=== PATIENT | male | born 1960 | race American Indian/Alaskan Native ===

== ENCOUNTER 2019-02-23 17:43 | Emergency (ER) | payer SELFPAY ==
[2019-02-23 19:57] LABS: Basophils # (Auto) 0.1 K/mm3 (0.0-0.1); Basophils % (Auto) 1.6 % (0.0-1.8); Eosinophils # (Auto) 0.4 K/mm3 (0.0-0.4); Eosinophils % (Auto) 4.8 % (0.0-4.3); Hematocrit 44.9 % (35.5-45.6); Hemoglobin 14.8 gm/dl (11.8-15.2); Lymphocytes # (Auto) 2.6 K/mm3 (1.2-5.4); Lymphocytes % (Auto) 29.4 % (13.4-35.0); Mean Corpuscular HGB Conc 33 % (32-34); Mean Corpuscular Volume 88 fl (84-94); Monocytes # (Auto) 0.5 K/mm3 (0.0-0.8); Monocytes % (Auto) 5.5 % (0.0-7.3); Platelet Count 225 K/mm3 (140-440); Red Cell Distribution Width 13.7 % (13.2-15.2)
[2019-02-23 20:10] LABS: BUN/Creatinine Ratio 15; Blood Urea Nitrogen 15 mg/dL (9-20); Calcium 9.8 mg/dL (8.4-10.2); Hemolysis Index 7
[2019-02-23] MEDS ORDERED: PEPCID PO ONE (21:43)
[2019-02-23] MEDS ORDERED: BENTYL PO ONE (21:43)
[2019-02-23] MEDS ORDERED: ZOFRAN ODT PO ONE (21:43)
[2019-02-23 21:54] LABS: Bilirubin,Urine NEG (Negative); Blood,Urine NEG (Negative); Color,Urine Yellow (Yellow); Mucus,Urine FEW /HPF; Protein,Urine <15 mg/dL mg/dL (Negative); Urobilinogen,Urine < 2.0 mg/dL (<2.0); WBC,Urine < 1.0 /HPF (0.0-6.0)
--- NOTE | 2019-02-23 22:41 | Emergency Department Report ---
ED Abdominal Pain HPI - General Chief Complaint: Abdominal Pain Stated Complaint: ATE A CANDY BAR WITH MAGGETS Time Seen by Provider: 02/23/19 21:30 Source: patient Mode of arrival: Ambulatory Limitations: No Limitations - History of Present Illness Initial Comments: Patient is a 59-year-old male who presented to the ED with complaint of acute on onset nausea and vomiting as well as epigastric pain after eating a Maggots infested candy 3 hours ago. Patient states that since the incident occurred he has had normal appetite. Patient states that he has had one episode of vomiting but that the nausea is persistent. Patient denies chest pain, shortness of breath, sore throat, diarrhea, dysuria, urinary frequency and urgency, fever, chills, headache or dizziness. MD Complaint: abdominal pain (epigastric), other (Nausea) -: Sudden, hour(s) (3) Location: epigastric Radiation: none Migration to: no migration Severity: mild Severity scale (0 -10): 2 Quality: cramping, aching Consistency: intermittent Improves With: nothing Worsens With: nothing Associated Symptoms: denies other symptoms, nausea. denies: vomiting, diarrhea, fever, chills, constipation, hematemesis, hematochezia, melena, anorexia, syncope, other - Related Data Home Medications Medication Instructions Recorded Confirmed Last Taken AtorvaSTATin [Lipitor] 20 mg PO QHS 02/14/16 02/19/16 02/18/16 23:00 Gemfibrozil [Lopid] 600 mg PO BID 02/14/16 02/19/16 02/18/16 23:00 metFORMIN [Glucophage] 500 mg PO BID 02/14/16 02/19/16 02/18/16 12:00 Insulin Lispro [Humalog Kwikpen 4 unit SQ BID 02/16/16 02/19/16 02/17/16 12:00 200 UNITS/ML] Previous Rx's Medication Instructions Recorded Last Taken Type Promethazine [Phenergan TAB] 25 mg PO Q6HR PRN #14 tab 02/19/16 Unknown Rx oxyCODONE /ACETAMINOPHEN [Percocet 1 tab PO Q6HR PRN #20 tablet 02/19/16 Unknown Rx 5/325] Dicyclomine [Bentyl] 20 mg PO Q6H PRN #20 tablet 02/23/19 Unknown Rx Ondansetron [Zofran Odt] 4 mg PO Q6HR PRN #15 tab.rapdis 02/23/19 Unknown Rx raNITIdine HCl [Zantac] 150 mg PO Q12H #30 tablet 02/23/19 Unknown Rx Allergies Allergy/AdvReac Type Severity Reaction Status Date / Time No Known Allergies Allergy Unverified 02/02/16 12:13 ED Review of Systems ROS: Stated complaint: ATE A CANDY BAR WITH MAGGETS Other details as noted in HPI Constitutional: denies: chills, fever Eyes: denies: eye pain, eye discharge, vision change ENT: denies: ear pain, throat pain Respiratory: denies: cough, shortness of breath, wheezing Cardiovascular: denies: chest pain, palpitations Endocrine: no symptoms reported Gastrointestinal: abdominal pain, nausea, vomiting. denies: diarrhea Genitourinary: denies: urgency, dysuria Musculoskeletal: denies: back pain, joint swelling, arthralgia Skin: denies: rash, lesions Neurological: denies: headache, weakness, paresthesias Psychiatric: denies: anxiety, depression Hematological/Lymphatic: denies: easy bleeding, easy bruising ED Past Medical Hx - Past Medical History Previous Medical History?: Yes Hx Hypertension: Yes (FOR 2 MTHS, DR. SARBJIT CHRISTIE- PCP) Hx Heart Attack/AMI: No Hx Diabetes: Yes Hx Liver Disease: No Hx Renal Disease: No Hx Sickle Cell Disease: No Hx Arthritis: Yes Hx Seizures: No Hx Asthma: No Hx HIV: No - Surgical History Past Surgical History?: Yes - Social History Smoking Status: Never Smoker Substance Use Type: Alcohol - Medications Home Medications: Home Medications Medication Instructions Recorded Confirmed Last Taken Type AtorvaSTATin [Lipitor] 20 mg PO QHS 02/14/16 02/19/16 02/18/16 23:00 History Gemfibrozil [Lopid] 600 mg PO BID 02/14/16 02/19/16 02/18/16 23:00 History metFORMIN [Glucophage] 500 mg PO BID 02/14/16 02/19/16 02/18/16 12:00 History Insulin Lispro [Humalog Kwikpen 4 unit SQ BID 02/16/16 02/19/16 02/17/16 12:00 History 200 UNITS/ML] Promethazine [Phenergan TAB] 25 mg PO Q6HR PRN #14 tab 02/19/16 Unknown Rx oxyCODONE /ACETAMINOPHEN [Percocet 1 tab PO Q6HR PRN #20 tablet 02/19/16 Unknown Rx 5/325] Dicyclomine [Bentyl] 20 mg PO Q6H PRN #20 tablet 02/23/19 Unknown Rx Ondansetron [Zofran Odt] 4 mg PO Q6HR PRN #15 tab.rapdis 02/23/19 Unknown Rx raNITIdine HCl [Zantac] 150 mg PO Q12H #30 tablet 02/23/19 Unknown Rx ED Physical Exam - General Limitations: No Limitations General appearance: alert, in no apparent distress - Head Head exam: Present: atraumatic, normocephalic, normal inspection - Eye Eye exam: Present: normal appearance, PERRL, EOMI. Absent: scleral icterus, conjunctival injection, periorbital swelling, periorbital tenderness Pupils: Present: normal accommodation - ENT ENT exam: Present: normal exam, normal orophraynx, mucous membranes moist, TM's normal bilaterally, normal external ear exam - Neck Neck exam: Present: normal inspection, full ROM - Respiratory Respiratory exam: Present: normal lung sounds bilaterally. Absent: respiratory distress, wheezes, rales, stridor, chest wall tenderness, accessory muscle use, decreased breath sounds - Cardiovascular Cardiovascular Exam: Present: regular rate, normal rhythm, normal heart sounds. Absent: systolic murmur, diastolic murmur, rubs, gallop - GI/Abdominal GI/Abdominal exam: Present: soft, normal bowel sounds. Absent: distended, tenderness, guarding, rebound, hyperactive bowel sounds, hypoactive bowel sounds, organomegaly, bruit - Rectal Rectal exam: Present: deferred - Extremities Exam Extremities exam: Present: normal inspection, full ROM, normal capillary refill - Back Exam Back exam: Present: normal inspection, full ROM. Absent: tenderness, CVA tenderness (R), CVA tenderness (L), muscle spasm, paraspinal tenderness, vertebral tenderness - Neurological Exam Neurological exam: Present: alert, oriented X3, CN II-XII intact, normal gait, reflexes normal - Psychiatric Psychiatric exam: Present: normal affect, normal mood - Skin Skin exam: Present: warm, dry, intact, normal color. Absent: rash ED Course Vital Signs 02/23/19 18:34 Temperature 98.5 F Pulse Rate 81 Respiratory 16 Rate Blood Pressure 121/82 O2 Sat by Pulse 96 Oximetry - Reevaluation(s) Reevaluation #1: 02/23/19 22:42 This is a 59-year-old male who presented to the ED with complaint of acute on onset nausea and vomiting as well as epigastric pain after eating a Maggots infested candy 3 hours ago. In the ED, patient is alert and oriented 3 and is not in distress. Patient has not had any vomiting episodes in the ED. Patient was treated in the ED for nausea and vomiting, also given pain medication and antacids. Lab test results were all unremarkable and nontoxic. Patient discharged home on antiemetics, antacids and pain medications and advised follow-up with his primary care physician in 5-7 days for reevaluation or return to the ED immediately if symptoms get worse. ED Medical Decision Making - Lab Data Result diagrams: 02/23/19 19:33 02/23/19 19:33 - Medical Decision Making This is a 59-year-old male who presented to the ED with complaint of acute on onset nausea and vomiting as well as epigastric pain after eating a Maggots infested candy 3 hours ago. In the ED, patient is alert and oriented 3 and is not in distress. Patient has not had any vomiting episodes in the ED. Patient was treated in the ED for nausea and vomiting, also given pain medication and antacids. Lab test results were all unremarkable and nontoxic. Patient discharged home on antiemetics, antacids and pain medications and advised follow-up with his primary care physician in 5-7 days for reevaluation or return to the ED immediately if symptoms get worse. - Differential Diagnosis Viral gastroenteritis; GERD; Food poisoning; vomiting Critical care attestation.: If time is entered above; I have spent that time in minutes in the direct care of this critically ill patient, excluding procedure time. ED Disposition Clinical Impression: Abdominal pain, acute, epigastric, Nausea and vomiting in adult Disposition: DC-01 TO HOME OR SELFCARE Is pt being admited?: No Does the pt Need Aspirin: No Condition: Stable Instructions: Gastroenteritis (ED), Acute Nausea and Vomiting (ED), Acute Ab dominal Pain (ED) Additional Instructions: Take medication with food, drink plenty of fluids and follow-up with your primary care physician in 5-7 days for reevaluation. Return to the ED immediately if symptoms get worse. Prescriptions: Dicyclomine [Bentyl] 20 mg PO Q6H PRN #20 tablet PRN Reason: Pain , Severe (7-10) raNITIdine HCl [Zantac] 150 mg PO Q12H #30 tablet Ondansetron [Zofran Odt] 4 mg PO Q6HR PRN #15 tab.rapdis PRN Reason: Nausea Referrals: PRIMARY CARE, [Primary Care Provider] - 3-5 Days Forms: Work/School Release Form(ED) Time of Disposition: 22:40 Print Language: TURKISH
[2019-02-23 22:56] VITALS: BP 125/72
== END 2019-02-23 22:57 | disposition home or self-care (01) ==
LOC: ED 17:43
DX: R10.13 Epigastric pain (principal); R11.2 Nausea with vomiting, unspecified; I10 Essential (primary) hypertension; E11.9 Type 2 diabetes mellitus without complications; M19.90 Unspecified osteoarthritis, unspecified site; Z79.4 Long term (current) use of insulin
CPT/HCPCS: 36415; 80048; 81001; 85025; Q0162

== ENCOUNTER 2020-07-22 08:35 | Emergency (ER) | payer OTHER ==
[2020-07-22 08:43] VITALS: BP 154/93
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
== END 2020-07-22 10:49 | disposition home or self-care (01) ==
LOC: ED 08:35
DX: M51.37 Other intervertebral disc degeneration, lumbosacral region (principal); M25.512 Pain in left shoulder; G89.29 Other chronic pain; I10 Essential (primary) hypertension; E11.9 Type 2 diabetes mellitus without complications; M19.90 Unspecified osteoarthritis, unspecified site; Z98.890 Other specified postprocedural states; Z79.899 Other long term (current) drug therapy; V49.49XA Driver injured in collision with other motor vehicles in traffic accident, initial encounter; Y92.410 Unspecified street and highway as the place of occurrence of the external cause; Y93.89 Activity, other specified; Y99.8 Other external cause status
CPT/HCPCS: 72040; 72100